=== PATIENT | female | born 1995 | race Caucasian/White ===

== ENCOUNTER 2018-07-21 22:09 | Inpatient (IN) | payer BC ==
[2018-07-21 23:30] LABS: BASO # 0.01 K/mm3 (0.0-2.0); BASO % 0.1 % (0.0-3.0); EOS # 0.1 (0.0-0.7); EOS % 0.3 % (1.5-5.0); GRAN # 13.19 (1.4-6.5); GRAN % 72.3 % (50.0-68.0); HEMOGLOBIN 12.5 g/dL (12.0-16.0); LYMPH % 21.9 % (22.0-35.0); MEAN CELL VOLUME 82.9 fl (80.0-105.0); MEAN CORPUSCULAR HEMOGLOBIN 27.8 pg (25.0-35.0); MEAN CORPUSCULAR HGB CONC 33.5 g/dl (31.0-37.0); MEAN PLATELET VOLUME 10.1 fl (7.0-11.0); MONO % 5.4 % (1.0-6.0); RBC 4.5 10^6/uL (3.5-6.1); RED CELL DISTRIBUTION WIDTH 13.6 % (11.5-14.5); WHITE BLOOD COUNT 18.2 10^3/ul (4.5-11.0)
[2018-07-21 23:36] LABS: PH,URINE 6.5 (4.7-8.0); URINE BILIRUBIN NEGATIVE (NEGATIVE); URINE BLOOD LARGE (NEGATIVE); URINE GLUCOSE (UA) NEGATIVE (NEGATIVE); URINE LEUKOCYTE ESTERASE NEGATIVE Leu/uL (NEGATIVE); URINE PROTEIN NEGATIVE mg/dL (<30 mg/dL); URINE UROBILINOGEN 0.2 E.U./dL (<1 E.U./dL)
[2018-07-21 23:37] LABS: URINE APPEARANCE SL CLOUDY (CLEAR); URINE COLOR YELLOW (YELLOW)
[2018-07-21 23:38] LABS: ALB/GLOB RATIO 1.4 (1.1-1.8); ALBUMIN 4.3 g/dL (3.0-4.8); ALT/SGPT 21 U/L (7-56); AST/SGOT 23 U/L (14-36); BLOOD UREA NITROGEN 11 mg/dL (7-21); CALCIUM 9.2 mg/dL (8.4-10.5); GFR AFRICAN-AMERICAN > 60; GFR NON-AFRICAN AMERICAN > 60; LIPASE 153 U/L (23-300)
[2018-07-21 23:52] LABS: URINE BACTERIA MOD (NEG); URINE WBC 0 - 2 /hpf (0-6)
[2018-07-22] MEDS ORDERED: Iohexol 350 MG/100 ML VIAL ONE (00:05)
--- NOTE | 2018-07-22 01:04 | ED PDOC ---
Arrival/HPI - General Chief Complaint: Abdominal Pain Time Seen by Provider: 07/21/18 22:48 Historian: Patient - History of Present Illness Narrative History of Present Illness (Text): 07/22/18 01:09 23-year-old female presents today with lower abdominal pain since this morning. pt states symptoms started suddenly this morning. pt denies n/v/d/c. no fever/ chills. pt denies urinary symptoms. pt states pain is greatest in the right side of the abdomen. pt states she had similar pain approximately 3 weeks ago that came and went quickly and was not as severe. pt denies dizziness or weakness. states she took tylenol for pain with some improvement today. Symptom Onset: Sudden Symptom Course: Improving (mild improvement) Quality: Aching Severity Level: Moderate Past Medical History - Provider Review Nursing Documentation Reviewed: Yes - Travel History Have you recently traveled outside [place] w/in the past 3 mons?: No - Infectious Disease Hx of Infectious Diseases: None - Cardiac Hx Cardiac Disorders: No - Psychiatric Hx Substance Use: No - Anesthesia Hx Anesthesia: No Family/Social History - Physician Review Nursing Documentation Reviewed: Yes Family/Social History: Unknown Family HX Smoking Status: Never Smoked Hx Alcohol Use: Yes Frequency of alcohol use: Socially Hx Substance Use: No Allergies/Home Meds Allergies/Adverse Reactions: Allergies No Known Allergies Allergy (Verified 07/21/18 22:31) Home Medications: Home Meds Medication Instructions Recorded Confirmed No Known Home Med 07/21/18 07/21/18 Review of Systems - Review of Systems Constitutional: absent: Fatigue, Fevers Respiratory: absent: SOB, Cough Cardiovascular: absent: Chest Pain, Palpitations Gastrointestinal: Abdominal Pain. absent: Constipation, Diarrhea, Nausea, Vomiting Genitourinary Female: absent: Dysuria, Frequency, Hematuria, Vaginal Bleeding, Vaginal Discharge Musculoskeletal: absent: Arthralgias, Back Pain, Neck Pain Skin: absent: Rash, Pruritis Neurological: absent: Headache, Dizziness Psychiatric: absent: Anxiety, Depression, Suicidal Ideation Physical Exam Vital Signs Reviewed: Yes Vital Signs Temp Pulse Resp BP Pulse Ox 07/22/18 01:46 98.3 F 85 16 111/68 100 07/21/18 22:39 98.3 F 85 16 101/71 98 Temperature: Afebrile Blood Pressure: Normal Pulse: Regular Respiratory Rate: Normal Appearance: Positive for: Well-Appearing, Non-Toxic, Comfortable Pain Distress: None Mental Status: Positive for: Alert and Oriented X 3 - Systems Exam Head: Present: Atraumatic Mouth: Present: Moist Mucous Membranes Neck: Present: Normal Range of Motion Respiratory/Chest: Present: Clear to Auscultation, Good Air Exchange. No: Respiratory Distress, Accessory Muscle Use Cardiovascular: Present: Regular Rate and Rhythm, Normal S1, S2. No: Murmurs Abdomen: Present: Tenderness (+ RLQ and suprapubic tenderness), Guarding, McBurney's Point Tender. No: Distention, Peritoneal Signs, Rebound Back: Present: Normal Inspection. No: CVA Tenderness, Midline Tenderness, Paraspinal Tenderness Upper Extremity: Present: Normal ROM Neurological: Present: GCS=15, Speech Normal Skin: Present: Warm, Dry, Normal Color. No: Rashes Psychiatric: Present: Alert, Oriented x 3 Medical Decision Making ED Course and Treatment: 07/22/18 00:56 Patient is nontoxic well appearing with stable vital signs presenting with [ severe] abdominal pain CBC wbc:18.2 CMP wnl Lipase wnl Urinalysis + blood CAT scan: FINDINGS: Lung bases: Unremarkable. No mass. No consolidation. ABDOMEN: Liver: Unremarkable. No mass. Gallbladder and bile ducts: Unremarkable. No calcified stones. No ductal dilation. Pancreas: Unremarkable. No mass. No ductal dilation. Spleen: Unremarkable. No splenomegaly. Adrenals: Unremarkable. No mass. Kidneys and ureters: Unremarkable. No solid mass. No hydronephrosis. Stomach and bowel: Unremarkable. No obstruction. No mucosal thickening. PELVIS: Appendix: The appendix is borderline dilated measuring 7 mm. There is wall enhancement noted. Possible very early acute appendicitis can't be excluded. No periappendiceal inflammatory changes. Surgical consult and clinical correlation and close clinical followup is recommended. Bladder: Unremarkable. No mass. Reproductive: Cyst in the right ovary. ABDOMEN and PELVIS: Intraperitoneal space: Minimal fluid in the cul-de-sac. No free air. Bones/joints: No acute fracture. No dislocation. Soft tissues: Unremarkable. Vasculature: Unremarkable. No abdominal aortic aneurysm. Lymph nodes: Unremarkable. No enlarged lymph nodes. IMPRESSION: The appendix is borderline dilated measuring 7 mm. There is wall enhancement noted. Possible very early acute appendicitis can't be excluded. No periappendiceal inflammatory changes. Surgical consult and clinical correlation and close clinical followup is recommended. Ultrasound transvaginal; FINDINGS: Uterus/cervix: Unremarkable. Normal endometrial stripe thickness. No myometrial mass. Right ovary: 2.3 cm cyst in the right ovary. Normal blood flow. Left ovary: Unremarkable. No mass. Normal blood flow. Free fluid: No free fluid. IMPRESSION: No acute findings Patient reassessment: pt resting comfortably in er; feeling better with medications. blood cultures. pt/ptt and type and screen added Unasyn started IV. case discussed with dr. goodman in depth; accepts admission; he would like Dr. Byrnes physical therapy resident was notified CT findings concerning for appendicitis. He will see the patient at bedside and will contact Dr. Byrnes. Discussed all results with patient in depth all aspects of this case were discussed the attending of record. Impression: Appendicitis admit to med/surg Reassessment Condition: Re-examined, Improved - Lab Interpretations Lab Results: 07/21/18 23:16 07/21/18 23:16 Lab Results 07/21/18 23:16: WBC 18.2 H, RBC 4.50, Hgb 12.5, Hct 37.3, MCV 82.9, MCH 27.8, MCHC 33.5, RDW 13.6, Plt Count 365, MPV 10.1, Gran % 72.3 H, Lymph % (Auto) 21.9 L, [place] % (Auto) 5.4, Eos % (Auto) 0.3 L, Baso % (Auto) 0.1, Gran # 13.19 H , Lymph # (Auto) 4.0 H, [place] # (Auto) 1.0 H, Eos # (Auto) 0.1, Baso # (Auto) 0.01 07/21/18 23:16: Urine Color Yellow, Urine Appearance Sl cloudy, Urine pH 6.5, Ur Specific [place] 1.025, Urine Protein Negative, Urine Glucose (UA) Negative, Urine Ketones Negative, Urine Blood Large H, Urine Nitrate Negative, Urine Bilirubin Negative, Urine Urobilinogen 0.2, Ur Leukocyte Esterase Negative, Urine RBC 2 - 5, Urine WBC 0 - 2, Ur Epithelial Cells 6 - 8, Urine Bacteria Mod 07/21/18 23:16: Sodium 140, Potassium 4.0, Chloride 103, Carbon Dioxide 26, Anion Gap 16, BUN 11, Creatinine 0.6 L, Est GFR ( Amer) > 60, Est GFR ( Non-Af Amer) > 60, Random Glucose 87, Calcium 9.2, Total Bilirubin 0.3, AST 23, ALT 21, Alkaline Phosphatase 62, Total Protein 7.4, Albumin 4.3, Globulin 3.1, Albumin/Globulin Ratio 1.4, Lipase 153 - RAD Interpretation Radiology Orders: 07/21/18 23:12 TRANSVAGINAL [US] Stat 07/22/18 00:08 ABD & PELVIS IV CONTRAST ONLY [CT] Stat - Medication Orders Current Medication Orders: Ampicillin Sodium/Sulbactam (Sodium 3 gm/ Sodium Chloride) 100 mls @ 100 mls/ hr IVPB STAT STA PRN Reason: Protocol Stop: 07/22/18 01:54 Last Admin: 07/22/18 01:29 Dose: 100 mls/hr eMAR Start Stop Document 07/22/18 01:29 IT (Rec: 07/22/18 01:30 IT [id number]) Intravenous Solution Start Date 07/22/18 Start Time 01:30 Lactated Ringer's 1,000 ml/ IV (SUPPLIES) 1,000 mls @ 5,824.08 mls/hr IV ONCE ONE PRN Reason: 120 ML/KG/HR Stop: 07/22/18 01:48 Disposition/Present on Arrival - Present on Arrival Any Indicators Present on Arrival: No History of DVT/PE: No History of Uncontrolled Diabetes: No Urinary Catheter: No History of Decub. Ulcer: No History Surgical Site Infection Following: None - Disposition Have Diagnosis and Disposition been Completed?: Yes Diagnosis: Appendicitis, Leukocytosis Disposition: HOSPITALIZED Disposition Time: 01:07 Patient Plan: Admission Patient Problems: Current Active Problems Problem Status Onset Appendicitis Acute Leukocytosis Acute Condition: FAIR
[2018-07-22 01:33] LABS: INR 1.07; PARTIAL THROMBOPLASTIN TIME 28.9 Seconds (25.1-36.5); PROTHROMBIN TIME 12.2 SECONDS (9.4-12.5)
--- NOTE | 2018-07-22 01:40 | CP.PCM.CON ---
History of Present Illness - History of Present Illness History of Present Illness: General Surgery Consult Note for Dr. Byrnes This is a 23F with no PMH who presents with abdominal pain since this morning. She reports that she first felt this abdominal pain 3 weeks ago while away in [place]. The pain got better and she had had pain intermittently since that time that is similar in character. She reports that she thought the pains were diet related however this AM the pains were more severe and that prompted her to go to the ER. She reports the pain as sharp and constant in her right lower abdomen. She denies any fevers or chills at home. She denies any changes in bowel or urinary function. She currently reports that she is hunger. PMH: Multiple misscarriages PSH: Denies ALL: NKDA Meds: Denies Family History: DM Social: Occasional Etoh, denies drugs and tobacco. FDLMP: 07/10/18 Review of Systems - Review of Systems All systems: reviewed and no additional remarkable complaints except Review of Systems: 12 Point review of symptoms conducted and negative accept for abdominal pain - Constitutional Constitutional: absent: Anorexia, Chills, Fever - Cardiovascular Cardiovascular: absent: Chest Pain, Dyspnea - Respiratory Respiratory: absent: Dyspnea, Dyspnea on Exertion - Genitourinary Genitourinary: absent: Dysuria, Hematuria Past Patient History - Infectious Disease Hx of Infectious Diseases: None - Past Social History Smoking Status: Never Smoked - CARDIAC Hx Cardiac Disorders: No - PSYCHIATRIC Hx Substance Use: No - ANESTHESIA Hx Anesthesia: No Meds Allergies/Adverse Reactions: Allergies Allergy/AdvReac Type Severity Reaction Status Date / Time No Known Allergies Allergy Verified 07/21/18 22:31 - Medications Medications: Current Medications Ampicillin Sodium/Sulbactam (Sodium 3 gm/ Sodium Chloride) 100 mls @ 100 mls/ hr IVPB STAT STA PRN Reason: Protocol Stop: 07/22/18 01:54 Last Admin: 07/22/18 01:29 Dose: 100 mls/hr Physical Exam - Constitutional Appears: Non-toxic, No Acute Distress - Head Exam Head Exam: ATRAUMATIC, NORMOCEPHALIC - Eye Exam Eye Exam: EOMI, Normal appearance - ENT Exam ENT Exam: Mucous Membranes Moist, Normal Exam - Respiratory Exam Respiratory Exam: NORMAL BREATHING PATTERN - Cardiovascular Exam Cardiovascular Exam: REGULAR RHYTHM - GI/Abdominal Exam GI & Abdominal Exam: Soft, Tenderness. absent: Distended, Firm, Guarding, Rebound, Rigid Additional comments: Rovsing - Neurological Exam Neurological exam: Alert, Oriented x3 - Psychiatric Exam Psychiatric exam: Normal Affect, Normal Mood - Skin Skin Exam: Dry, Intact Results - Vital Signs Recent Vital Signs: Last Vital Signs Temp 98.3 F 07/21/18 22:39 Pulse 85 07/21/18 22:39 Resp 16 07/21/18 22:39 BP 101/71 07/21/18 22:39 Pulse Ox 98 07/21/18 22:39 - Labs Result Diagrams: 07/21/18 23:16 07/21/18 23:16 Labs: Laboratory Results - last 24 hr 07/21/18 07/21/18 07/21/18 23:16 23:16 23:16 WBC 18.2 H RBC 4.50 Hgb 12.5 Hct 37.3 MCV 82.9 MCH 27.8 MCHC 33.5 RDW 13.6 Plt Count 365 MPV 10.1 Gran % 72.3 H Lymph % (Auto) 21.9 L [place] % (Auto) 5.4 Eos % (Auto) 0.3 L Baso % (Auto) 0.1 Gran # 13.19 H Lymph # (Auto) 4.0 H [place] # (Auto) 1.0 H Eos # (Auto) 0.1 Baso # (Auto) 0.01 PT INR APTT Sodium 140 Potassium 4.0 Chloride 103 Carbon Dioxide 26 Anion Gap 16 BUN 11 Creatinine 0.6 L Est GFR ( Amer) > 60 Est GFR (Non-Af Amer) > 60 Random Glucose 87 Calcium 9.2 Total Bilirubin 0.3 AST 23 ALT 21 Alkaline Phosphatase 62 Total Protein 7.4 Albumin 4.3 Globulin 3.1 Albumin/Globulin Ratio 1.4 Lipase 153 Urine Color Yellow Urine Appearance Sl cloudy Urine pH 6.5 Ur Specific [place] 1.025 Urine Protein Negative Urine Glucose (UA) Negative Urine Ketones Negative Urine Blood Large H Urine Nitrate Negative Urine Bilirubin Negative Urine Urobilinogen 0.2 Ur Leukocyte Esterase Negative Urine RBC 2 - 5 Urine WBC 0 - 2 Ur Epithelial Cells 6 - 8 Urine Bacteria Mod BBK History Checked 07/22/18 07/22/18 01:15 01:15 WBC RBC Hgb Hct MCV MCH MCHC RDW Plt Count MPV Gran % Lymph % (Auto) [place] % (Auto) Eos % (Auto) Baso % (Auto) Gran # Lymph # (Auto) [place] # (Auto) Eos # (Auto) Baso # (Auto) PT 12.2 INR 1.07 APTT 28.9 Sodium Potassium Chloride Carbon Dioxide Anion Gap BUN Creatinine Est GFR ( Amer) Est GFR (Non-Af Amer) Random Glucose Calcium Total Bilirubin AST ALT Alkaline Phosphatase Total Protein Albumin Globulin Albumin/Globulin Ratio Lipase Urine Color Urine Appearance Urine pH Ur Specific [place] Urine Protein Urine Glucose (UA) Urine Ketones Urine Blood Urine Nitrate Urine Bilirubin Urine Urobilinogen Ur Leukocyte Esterase Urine RBC Urine WBC Ur Epithelial Cells Urine Bacteria BBK History Checked No verified bt - Imaging and Cardiology CT scan - abdomen Status: Image reviewed by me, Report reviewed by me CT scan - pelvis Status: Image reviewed by me, Report reviewed by me Assessment & Plan - Assessment and Plan (Free Text) Assessment: 23F with abdominal pain Leukocytosis WBC 18 CT abdomen and pelvic 7mm appendix without inflammatory changes read: possible very early appendicitis Pelvic US Right adenexal cyst [id number] official report pending Plan: NPO IVF IV ABX Re-evaluate this AM Further recs per Dr. Fitz Jordan PGY3
[2018-07-22 01:46] VITALS: O2SAT 100
[2018-07-22] MEDS ORDERED: Sodium Chloride 0.9% 1,000 ML IV SCH (02:00)
--- NOTE | 2018-07-22 02:17 | CP.PCM.HP ---
History of Present Illness - History of Present Illness History of Present Illness: Kvng Cordova, PGY-1, Internal Medicine History and Physical for Dr. Lucas CC: right lower abdominal pain 23 year old female with past medical history of chlamydia 1 year ago and multiple miscarriages presents with sharp stabbing right lower quadrant abdominal pain rated at a 9/10 that started at 13:00 on 07/21. Patient reports no activity during or prior to the start of the pain. Patient reports never having any pain like this in the past. Patient reports the pain was nonradiating and constant throughout the day. Patient took tylenol for the pain , which relieved the pain. On presentation, she reports the pain to be 2/10. Nothing makes the pain worse. Patient reports one episode of blood in stool 1 week ago. Patient reports constipation. She reports having to strain to defecate yesterday morning. Last bowel movement was yesterday morning. She generally goes 1-2 times a day. She reports traveling to [place] and returning one week ago. She reports eating home cooked food on the night 07/20 and morning of 07/21. Patient denies fever, headache, nausea, vomiting, diarrhea, hematuria, dysuria, chest pain, heart palpitations, shortness of breath, swelling of legs, numbness/tingling of fingers or toes. LMP: July 10 Periods: regular but changes every 3 months. She has 6 days of bleeding. Bleeding is heavy for 3 days and reduces for the next 3 days. Patient has dysmenorrhea, but no dysparenuria. PMH: chlamydia, multiple miscarriages PSH: denies FMHx: History of diabetes, HTN, hypothyroidism. SHx: denies smoking and recreational drug history. Patient drinks 4x a month and has 2-3 drinks when she drinks. Patient has had 4-5 sexual partners in the last year. PMD: denies Pharmacy: [facility] in [place], [place] Insurance: [facility] out of state Present on Admission - Present on Admission Any Indicators Present on Admission: No History of DVT/PE: No History of Uncontrolled Diabetes: No Review of Systems - Constitutional Constitutional: absent: Anorexia, Chills, Fever - EENT Eyes: absent: Change in Vision Ears: absent: Decreased Hearing - Cardiovascular Cardiovascular: absent: Chest Pain, Chest Pain with Activity, Dyspnea, Dyspnea on Exertion - Respiratory Respiratory: absent: Cough, Dyspnea - Gastrointestinal Gastrointestinal: Abdominal Pain, Constipation. absent: Diarrhea, Nausea, Vomiting - Reproductive: Female Reproductive:Female: Heavy Menses, Dysmenorrhea. absent: Dyspareunia - Menstruation Menstruation: Heavy Menses, Dysmenorrhea - Musculoskeletal Musculoskeletal: absent: Arthralgias, Back Pain - Integumentary Integumentary: absent: Dry Skin, New Lesions - Neurological Neurological: absent: Abnormal Gait, Abnormal Hearing, Numbness, Focal Weakness , Tingling - Psychiatric Psychiatric: absent: Anxiety, Depression - Endocrine Endocrine: absent: Polydipsia, Polyphagia, Polyuria Past Patient History - Infectious Disease Hx of Infectious Diseases: None - Past Social History Smoking Status: Never Smoked Alcohol: < 2 Drinks/Day Drugs: Denies - CARDIAC Hx Cardiac Disorders: No - PSYCHIATRIC Hx Substance Use: No - ANESTHESIA Hx Anesthesia: No Meds Allergies/Adverse Reactions: Allergies Allergy/AdvReac Type Severity Reaction Status Date / Time No Known Allergies Allergy Verified 07/21/18 22:31 Physical Exam - Constitutional Appears: Well, Non-toxic, No Acute Distress - Head Exam Head Exam: ATRAUMATIC, NORMOCEPHALIC - Eye Exam Eye Exam: EOMI, PERRL - ENT Exam ENT Exam: Mucous Membranes Moist - Neck Exam Neck exam: Positive for: Normal Inspection - Respiratory Exam Respiratory Exam: Clear to Auscultation Bilateral, NORMAL BREATHING PATTERN - Cardiovascular Exam Cardiovascular Exam: REGULAR RHYTHM, RRR - GI/Abdominal Exam GI & Abdominal Exam: Normal Bowel Sounds, Soft, Tenderness (RLQ, RUQ with deep palpation). absent: Rebound - Extremities Exam Extremities exam: Positive for: full ROM, normal inspection - Neurological Exam Neurological exam: Alert, CN II-XII Intact, Oriented x3 - Psychiatric Exam Psychiatric exam: Normal Affect, Normal Mood - Skin Skin Exam: Dry, Intact, Normal Color Results - Vital Signs Recent Vital Signs: Last Vital Signs Temp 98.3 F 07/22/18 02:03 Pulse 85 07/22/18 02:03 Resp 16 07/22/18 02:03 BP 111/68 07/22/18 02:03 Pulse Ox 100 07/22/18 02:03 - Labs Result Diagrams: 07/21/18 23:16 07/21/18 23:16 Labs: Laboratory Results - last 24 hr 07/22/18 07/22/18 01:15 01:15 PT 12.2 INR 1.07 APTT 28.9 BBK History Checked No verified bt Assessment & Plan - Assessment and Plan (Free Text) Assessment: 23 year old female with past medical history of chlamydia 1 year ago and multiple miscarriages presents with sharp stabbing right lower quadrant abdominal pain rated at a 9/10 that started at 13:00 on 07/21. Patient will be admitted for leukocytosis and abdominal pain 2/2 to appendicitis vs. PID vs. ovarian cyst Plan: Abdominal pain 2/2 to appendicitis vs. PID vs. ovarian cyst -TVUS: 2.3 cm cyst in the right ovary. Normal blood flow. -Abdominal CT with IV contrast: The appendix is borderline dilated measuring 7 mm. There is wall enhancement noted. Possible very early acute appendicitis can' t be excluded. No periappendiceal inflammatory changes. Surgical consult and clinical correlation and close clinical followup is recommended. -WBC: 18.2 -Patient afebrile -Chlamydia/GC RNA, HIV Ag/Ab, hepatitis panel, blood culture, urine culture ordered for evaluation of infectious cause of abdominal pain. -NPO -Zosyn started for possible appendicitis -1 L lactated ringer at 120 cc/hr started. -Dr. Byrnes, Surgery, consulted for the case. Follow recommendations. Leukocytosis -likely 2/2 to infection vs. appendicitis vs. stress -Continue to monitor. DVT prophylaxis: lovenox 40 GI prophylaxis: protonix 40 Patient discussed and plan reviews with Dr. Lucas. - Date & Time Date: 07/22/18 Time: 02:30
[2018-07-22 02:30] VITALS: BMI 20.2
[2018-07-22] MEDS ORDERED: Lactated Ringer's 1,000 ML IV SCH (02:30)
[2018-07-22] MEDS ORDERED: Sodium Chloride 0.9% 1,000 ML IV STA (02:32)
[2018-07-22] MEDS ORDERED: metroNIDAZOLE IV 500 mg/100 ml 500 MG/100 ML BAG IVPB SCH (06:00)
[2018-07-22] MEDS: Piperacillin/Tazobact 3.375 gm 100 ML IVPB SCH ×2 (06:03→13:10)
[2018-07-22 07:24] LABS: BASO # 0.03 K/mm3 (0.0-2.0); BASO % 0.2 % (0.0-3.0); EOS # 0.1 (0.0-0.7); EOS % 0.9 % (1.5-5.0); GRAN # 7.83 (1.4-6.5); GRAN % 60.8 % (50.0-68.0); HEMOGLOBIN 11.2 g/dL (12.0-16.0); LYMPH # 4.2 (1.2-3.4); LYMPH % 32.4 % (22.0-35.0); MEAN CELL VOLUME 84.1 fl (80.0-105.0); MEAN CORPUSCULAR HEMOGLOBIN 27.3 pg (25.0-35.0); MEAN CORPUSCULAR HGB CONC 32.5 g/dl (31.0-37.0); MEAN PLATELET VOLUME 10.7 fl (7.0-11.0); MONO # 0.7 (0.1-0.6); MONO % 5.7 % (1.0-6.0); RBC 4.1 10^6/uL (3.5-6.1); RED CELL DISTRIBUTION WIDTH 13.7 % (11.5-14.5); WHITE BLOOD COUNT 12.9 10^3/ul (4.5-11.0)
[2018-07-22 07:43] LABS: ALB/GLOB RATIO 1.2 (1.1-1.8); ALBUMIN 3.5 g/dL (3.0-4.8); ALT/SGPT 25 U/L (7-56); AST/SGOT 20 U/L (14-36); BLOOD UREA NITROGEN 9 mg/dL (7-21); CALCIUM 8.2 mg/dL (8.4-10.5); GFR AFRICAN-AMERICAN > 60; GFR NON-AFRICAN AMERICAN > 60
[2018-07-22 07:44] VITALS: BP 101/61; PULSE 80; RESP 18; TEMP 98.4
--- NOTE | 2018-07-22 08:27 | CP.PCM.HP ---
History of Present Illness - History of Present Illness History of Present Illness: 23 year old female with no significant past medical history presented to the Emergency Room with right lower quadrant abdominal pain. Patient says that pain started about 3 weeks ago, but was worse yesterday so she came to the ER. She denies nausea, vomiting or fever. Her last menstrual period was about 3 weeks ago. Present on Admission - Present on Admission Any Indicators Present on Admission: No History of DVT/PE: No History of Uncontrolled Diabetes: No Urinary Catheter: No Decubitus Ulcer Present: No Review of Systems - Constitutional Constitutional: absent: Chills, Fever, Weight Loss - Cardiovascular Cardiovascular: absent: Chest Pain, Diaphoresis, Dyspnea - Respiratory Respiratory: absent: Cough, Dyspnea, Hemoptysis - Gastrointestinal Gastrointestinal: As Per HPI Past Patient History - Infectious Disease Hx of Infectious Diseases: None - Past Social History Smoking Status: Never Smoked Alcohol: < 2 Drinks/Day Drugs: Denies - CARDIAC Hx Cardiac Disorders: No - MUSCULOSKELETAL/RHEUMATOLOGICAL Hx Falls: No - PSYCHIATRIC Hx Substance Use: No - ANESTHESIA Hx Anesthesia: No Meds Allergies/Adverse Reactions: Allergies Allergy/AdvReac Type Severity Reaction Status Date / Time No Known Allergies Allergy Verified 07/21/18 22:31 Physical Exam - Constitutional Appears: No Acute Distress - Head Exam Head Exam: ATRAUMATIC, NORMOCEPHALIC - Respiratory Exam Respiratory Exam: Clear to Auscultation Bilateral, NORMAL BREATHING PATTERN - Cardiovascular Exam Cardiovascular Exam: REGULAR RHYTHM, +S1, +S2 - GI/Abdominal Exam GI & Abdominal Exam: Normal Bowel Sounds, Soft, Tenderness Additional comments: mild RLQ tenderness - Neurological Exam Neurological exam: Alert, Oriented x3 Results - Vital Signs Recent Vital Signs: Last Vital Signs Temp 98.4 F 07/22/18 07:43 Pulse 80 07/22/18 07:43 Resp 18 07/22/18 07:43 BP 101/61 07/22/18 07:43 Pulse Ox 100 07/22/18 07:43 - Labs Result Diagrams: 07/22/18 06:00 07/22/18 06:00 Labs: Laboratory Results - last 24 hr 07/22/18 07/22/18 07/22/18 01:15 01:15 01:47 WBC RBC Hgb Hct MCV MCH MCHC RDW Plt Count MPV Gran % Lymph % (Auto) [place] % (Auto) Eos % (Auto) Baso % (Auto) Gran # Lymph # (Auto) [place] # (Auto) Eos # (Auto) Baso # (Auto) PT 12.2 INR 1.07 APTT 28.9 Sodium Potassium Chloride Carbon Dioxide Anion Gap BUN Creatinine Est GFR ( Amer) Est GFR (Non-Af Amer) Random Glucose Calcium Phosphorus Magnesium Total Bilirubin AST ALT Alkaline Phosphatase Total Protein Albumin Globulin Albumin/Globulin Ratio Blood Type AB POSITIVE Blood Type Confirm AB POSITIVE Antibody Screen Negative BBK History Checked No verified bt 07/22/18 07/22/18 06:00 06:00 WBC 12.9 H D RBC 4.10 Hgb 11.2 L Hct 34.5 L MCV 84.1 MCH 27.3 MCHC 32.5 RDW 13.7 Plt Count 311 MPV 10.7 Gran % 60.8 Lymph % (Auto) 32.4 [place] % (Auto) 5.7 Eos % (Auto) 0.9 L Baso % (Auto) 0.2 Gran # 7.83 H Lymph # (Auto) 4.2 H [place] # (Auto) 0.7 H Eos # (Auto) 0.1 Baso # (Auto) 0.03 PT INR APTT Sodium 139 Potassium 3.6 Chloride 107 Carbon Dioxide 22 Anion Gap 14 BUN 9 Creatinine 0.5 L Est GFR ( Amer) > 60 Est GFR (Non-Af Amer) > 60 Random Glucose 79 Calcium 8.2 L Phosphorus 3.5 Magnesium 1.7 Total Bilirubin 0.3 AST 20 ALT 25 Alkaline Phosphatase 57 Total Protein 6.3 Albumin 3.5 Globulin 2.8 Albumin/Globulin Ratio 1.2 Blood Type Blood Type Confirm Antibody Screen BBK History Checked Assessment & Plan - Assessment and Plan (Free Text) Assessment: RLQ abdominal pain r/o appendicitis vs. ovarian cyst Plan: Patient is afebrile this morning. WBC count is elevated. Will consult infectious disease. Awaiting CT scan report. Continue IV fluids, antibiotics. Will check ultrasound of the pelvis. Consult gynecology.
--- NOTE | 2018-07-22 08:58 | US ---
Date of service: 07/22/2018 HISTORY: Pelvic pain COMPARISON: None available. TECHNIQUE: Transvaginal pelvic ultrasound was performed. FINDINGS: UTERUS: Measures 0.2 x 2.7 x 4.4 cm. Retroverted, normal in size and appearance. No fibroid or other mass lesion seen. ENDOMETRIUM: Measures 8 mm in diameter. The central endometrial echo complex is normal in appearance. CERVIX: No cervical abnormality identified. RIGHT OVARY: Measures 3.9 x 2.2 x 3.0 cm. No solid mass. Normal flow. There is a 2.3 x 1.2 x 2.1 cm simple cyst. LEFT OVARY: Measures 3.2 x 1.5 x 2.6 cm. No solid mass. Normal flow. FREE FLUID: Small amount of free fluid in the cul de sac is likely physiologic. OTHER FINDINGS: None. IMPRESSION: Unremarkable pelvic ultrasound. A preliminary report was provided by [facility].
--- NOTE | 2018-07-22 09:39 | CT ---
Date of service: 07/22/2018 PROCEDURE: CT Abdomen and Pelvis with contrast HISTORY: abd pain COMPARISON: None. TECHNIQUE: Contrast dose: 92 cc of Omni 350 Radiation dose: Total exam DLP = 217 mGy-cm. This CT exam was performed using one or more of the following dose reduction techniques: Automated exposure control, adjustment of the mA and/or kV according to patient size, and/or use of iterative reconstruction technique. FINDINGS: LOWER THORAX: Unremarkable. LIVER: Unremarkable. No gross lesion or ductal dilatation. GALLBLADDER AND BILE DUCTS: Unremarkable. PANCREAS: Unremarkable. No gross lesion or ductal dilatation. SPLEEN: Unremarkable. ADRENALS: Unremarkable. No mass. KIDNEYS AND URETERS: Unremarkable. No hydronephrosis. No solid mass. VASCULATURE: Unremarkable. No aortic aneurysm. BOWEL: Unremarkable. No obstruction. No gross mural thickening. APPENDIX: The appendix is top-normal in size measuring 7 mm. There is mural enhancement. The findings could represent very early appendicitis. There are no inflammatory changes in the adjacent mesenteric fat PERITONEUM: Unremarkable. No free fluid. No free air. LYMPH NODES: Unremarkable. No enlarged lymph nodes. BLADDER: Unremarkable. REPRODUCTIVE: Bilateral ovarian cysts are seen. There is a small amount of free fluid. The uterus is retroflexed BONES: No acute fracture. OTHER FINDINGS: The report concurs with the preliminary [facility] report IMPRESSION: The appendix is top-normal in size measuring 7 mm. There is mural enhancement. The findings could represent very early appendicitis. There are no inflammatory changes in the adjacent mesenteric fat
[2018-07-22] MEDS ORDERED: cefOXitin 2 GM in Sodium Chloride 0.9% 100 ML IV SCH (10:00)
[2018-07-22] MEDS ORDERED: Enoxaparin 40 mg Syringe SC SCH (10:00)
[2018-07-22] MEDS ORDERED: cefTRIAXone 1 gm 1 GM/100 ML BAG IVPB ONE (10:00)
--- NOTE | 2018-07-22 14:40 | CP.PCM.CON ---
History of Present Illness - History of Present Illness History of Present Illness: 23 year old female with PMH of multiple miscarriages [place] [facility] of abdominal pain for the past 2-3 weeks which was initially vague, but has worsened in the past 2-3 days, associated with nausea. She has some constipation as well. She denies fever or chills, no dysuria, no increased vaginal bleeding, no discharge, no chest pain, no SOB, no cough or rhinorrhea. She denies eating anything out of the ordinary, denies animal contacts. She states that she has had about 4-5 sexual partners in the past year. CT scan of the abdomen and pelvis as well as pelvic ultrasound are showing possible early appendicitis and ovarian cyst. Infectious Diseases consult is requested to further evaluate and manage. Review of Systems - Review of Systems All systems: reviewed and no additional remarkable complaints except (as per HPI ) Past Patient History - Infectious Disease Hx of Infectious Diseases: None - Past Social History Smoking Status: Never Smoked Alcohol: < 2 Drinks/Day Drugs: Denies - CARDIAC Hx Cardiac Disorders: No - MUSCULOSKELETAL/RHEUMATOLOGICAL Hx Falls: No - PSYCHIATRIC Hx Substance Use: No - ANESTHESIA Hx Anesthesia: No Meds Allergies/Adverse Reactions: Allergies Allergy/AdvReac Type Severity Reaction Status Date / Time No Known Allergies Allergy Verified 07/21/18 22:31 - Medications Medications: Current Medications Doxycycline Hyclate (Doryx) 100 mg PO Q12 [facility] PRN Reason: Protocol Enoxaparin Sodium (Lovenox) 40 mg SC DAILY [facility] PRN Reason: Protocol Piperacillin Sod/Tazobactam Sod (Zosyn 3.375 In Ns 100ml) 100 mls @ 200 mls/hr IVPB Q6 [facility] PRN Reason: Protocol Stop: 07/29/18 06:01 Last Admin: 07/22/18 06:03 Dose: 200 mls/hr Lactated Ringer's (Lactated Ringer's) 1,000 mls @ 120 mls/hr IV .[id number] [facility] Last Admin: 07/22/18 02:34 Dose: 120 mls/hr Cefoxitin Sodium 2 gm/ Sodium (Chloride) 100 mls @ 100 mls/hr IV Q12 [facility] PRN Reason: Protocol Pantoprazole Sodium (Protonix Inj) 40 mg IVP DAILY [facility] Physical Exam - Constitutional Appears: Chronically Ill - Head Exam Head Exam: NORMAL INSPECTION - ENT Exam ENT Exam: Mucous Membranes Moist - Neck Exam Neck exam: Negative for: Meningismus - Respiratory Exam Respiratory Exam: Decreased Breath Sounds - Cardiovascular Exam Cardiovascular Exam: +S1, +S2 - GI/Abdominal Exam GI & Abdominal Exam: Soft. absent: Tenderness Results - Vital Signs Recent Vital Signs: Last Vital Signs Temp 98.4 F 07/22/18 07:43 Pulse 80 07/22/18 07:43 Resp 18 07/22/18 07:43 BP 101/61 07/22/18 07:43 Pulse Ox 100 07/22/18 07:43 - Labs Result Diagrams: 07/22/18 06:00 07/22/18 06:00 Labs: Laboratory Results - last 24 hr 07/22/18 07/22/18 07/22/18 01:15 01:15 01:47 WBC RBC Hgb Hct MCV MCH MCHC RDW Plt Count MPV Gran % Lymph % (Auto) Wilcox % (Auto) Eos % (Auto) Baso % (Auto) Gran # Lymph # (Auto) Wilcox # (Auto) Eos # (Auto) Baso # (Auto) PT 12.2 INR 1.07 APTT 28.9 Sodium Potassium Chloride Carbon Dioxide Anion Gap BUN Creatinine Est GFR ( Amer) Est GFR (Non-Af Amer) Random Glucose Calcium Phosphorus Magnesium Total Bilirubin AST ALT Alkaline Phosphatase Total Protein Albumin Globulin Albumin/Globulin Ratio Blood Type AB POSITIVE Blood Type Confirm AB POSITIVE Antibody Screen Negative BBK History Checked No verified bt 07/22/18 07/22/18 06:00 06:00 WBC 12.9 H D RBC 4.10 Hgb 11.2 L Hct 34.5 L MCV 84.1 MCH 27.3 MCHC 32.5 RDW 13.7 Plt Count 311 MPV 10.7 Gran % 60.8 Lymph % (Auto) 32.4 Wilcox % (Auto) 5.7 Eos % (Auto) 0.9 L Baso % (Auto) 0.2 Gran # 7.83 H Lymph # (Auto) 4.2 H Wilcox # (Auto) 0.7 H Eos # (Auto) 0.1 Baso # (Auto) 0.03 PT INR APTT Sodium 139 Potassium 3.6 Chloride 107 Carbon Dioxide 22 Anion Gap 14 BUN 9 Creatinine 0.5 L Est GFR ( Amer) > 60 Est GFR (Non-Af Amer) > 60 Random Glucose 79 Calcium 8.2 L Phosphorus 3.5 Magnesium 1.7 Total Bilirubin 0.3 AST 20 ALT 25 Alkaline Phosphatase 57 Total Protein 6.3 Albumin 3.5 Globulin 2.8 Albumin/Globulin Ratio 1.2 Blood Type Blood Type Confirm Antibody Screen BBK History Checked Assessment & Plan - Assessment and Plan (Free Text) Plan: Assessment Possible early acute appendicitis Ovarian cyst R/O PID multiple miscarriages Plan Started Zosyn and will also give a dose of Rocephin and start Doxycycline pending blood cx, urine cx, urine GC will also check HIV test follow up further Surgery recommendations and will recommend Shoe Folder evaluation will monitor clinically
--- NOTE | 2018-07-22 15:11 | CON ---
Copied To: Star Mulligan MD Attending MD: Star Mulligan MD DATE: 07/22/2018 CONSULTATION IN GASTROENTEROLOGY REQUESTING PHYSICIAN: Buddy Lucas MD. REASON FOR CONSULTATION: I have been asked to see this 23-year-old female, who comes to the hospital with moderate to severe lower abdominal pain. The patient has had intermittent lower abdominal pain for the last 3 weeks. She first noticed this pain several weeks ago while she was traveling in [place], [place]. The patient states that the pain comes and goes. It is intermittent and occasionally sharp. The patient developed severe abdominal pain this morning, which prompted her to come to the emergency room. She has regular bowel movements. She denies any diarrhea, rectal bleeding, nausea, vomiting. She denies any fevers or chills. CT scan of the abdomen and pelvis performed in the emergency room showed some mild nonspecific mural thickening of the appendix. There is no periappendiceal inflammation or fluid. Pelvic ultrasound shows small amount of free fluid in the cul-de-sac. A small 2.3 x 1.2 cm cyst is seen in the right ovary. The patient feels much better at this point. Her abdominal pain has subsided. PAST MEDICAL HISTORY: Notable for several miscarriages. She denies any history of hypertension, diabetes mellitus or kidney disease. She has not had any prior surgeries. She is not on any medications. SOCIAL HISTORY: She denies cigarette smoking. She consumes alcohol socially. 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 FAMILY HISTORY: Notable for diabetes mellitus. REVIEW OF SYSTEMS: Fourteen-point review of systems is notable for lower abdominal pain. PHYSICAL EXAMINATION: GENERAL: Well-developed female, thin, in lying in bed, no acute distress. VITAL SIGNS: Reveal temperature of 98.4, blood pressure 101/61, heart rate of 80. HEENT: Reveals sclerae to be white. Conjunctivae pink. NECK: Supple. CHEST: Lungs are clear. HEART: Reveals a regular rate and rhythm. ABDOMEN: Soft, nontender. No mass. EXTREMITIES: Show no edema. LABORATORY DATA: Reveals white blood cell count of 12.9, on admission to the hospital was 18.2; hemoglobin 11.2. Chemistries reveal normal electrolytes. IMPRESSION: A 23-year-old female with intermittent severe lower abdominal pain starting approximately 3 weeks ago with an episode of severe lower abdominal pain this morning. CT scan of the abdomen and pelvis shows some mild nonspecific mural thickening of the appendix. There is no periappendiceal inflammation. Pelvic ultrasound does show some free fluid in the cul-de-sac with a small ovarian cyst. The patient's pain is most likely secondary to ruptured ovarian cyst. RECOMMENDATIONS: The patient is stable from a GI standpoint for discharge. I have instructed the patient to follow up with her civil engineering specialist. The patient has also been asked to return to the hospital if she has recurrence of her lower abdominal pain. Star Mulligan MD
[2018-07-22 17:07] LABS: HEPATITIS B SURFACE AG Negative (NEGATIVE)
[2018-07-22 17:13] LABS: HEPATITIS A IGM NEGATIVE (NEGATIVE); HEPATITIS B CORE AB NEGATIVE (NEGATIVE)
[2018-07-22 17:24] LABS: HEPATITIS C ANTIBODY NEGATIVE (NEGATIVE)
== END 2018-07-22 16:58 | disposition home or self-care (01) | DRG 761 ==
LOC: ED 22:09 → ERH 07-22 01:02 → 5RNO 07-22 02:02
PROVIDERS: ADMIT Internal Medicine; ATTEND Internal Medicine
DX: N83.201 Unspecified ovarian cyst, right side (principal); K37 Unspecified appendicitis; K59.00 Constipation, unspecified; N94.6 Dysmenorrhea, unspecified; Z82.49 Family history of ischemic heart disease and other diseases of the circulatory system; Z83.3 Family history of diabetes mellitus